=== PATIENT | female | born 1945 | race Caucasian/White ===

== ENCOUNTER 2022-09-25 10:20 | Outpatient (OUT) | payer MEDICARE, SELFPAY ==
--- NOTE | 2022-09-25 10:25 | VEIN_ITS ---
The [address] [address] Patient Name: PIA HILARIO MRN: [id number] date: 1945 Sex: F Assigned Patient Location: Current Patient Location: Accession/Order Number: [id number] Exam Date: 09/25/2022 10:55 Report Date: 09/25/2022 14:53 At the request of: MEENA ADHIKARI Procedure: VC INJ Foam Sclerosant WUS TALLOW REFINER PROCEDURE: VC INJ Foam Sclerosant WUS TALLOW REFINER COMPARISON: None. HISTORY: Painful Varicose Veins I83.813 Pre-operative Diagnosis: CEAP class C2 venous insufficiency with pain, tenderness, edema and incompetent branch saphenous vein, chronic venous insufficiency right leg secondary to venous incompetence Post-operative Diagnosis: CEAP class C2 venous insufficiency with pain, tenderness, edema and incompetent branch saphenous vein, chronic venous insufficiency ] leg secondary to venous incompetence Procedure Performed: 1. Ultrasound-guided microfoam chemical ablation with Varithenaregistered 2. Intraoperative ultrasound guidance Physician: Adan Barth M.D. Indications for Procedure: 77 year old female. Symptoms including bulging of the veins, leg cramping and pain, edema for many years despite conservative medical therapy including medical compression stockings, exercise and analgesics. Prior procedures include . 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 Duplex scan showed reflux and enlarged diameters up to 5 mm. The patient underwent informed consent including management options where the complications of infection, bleeding, pain, and skin injury were discussed. Particular attention was spent discussing thrombus extension and deep vein thrombosis as well as the possibility of pulmonary embolus and treatment with oral or injectable blood thinners. Procedure: A procedure timeout was performed to confirm correct patient, correct extremity, correct procedure, and correct room set-up including presence of all applicable supplies, devices, and drugs. A duplex ultrasound, performed by myself confirmed the location and incompetence of brain saphenous or calyces and there course marked on the skin. The extent of treatment of the vein and the associated varicosities was determined through ultrasound mapping. The limb was prepped. The skin was punctured with a butterfly needle and advanced under ultrasound guidance. The target limb was positioned at 45 degrees of elevation in relation to the torso. The Varithenaregistered canister was activated and the canister was primed and purged as required in the instructions for use. A 5 mL aliquot of Varithenaregistered was drawn into a sterile syringe. Varithenaregistered was slowly administered at 0.5-1.0 cc/second with close observation by ultrasound. Total volume utilized was 15 mL (8 mL within a 5 mm incompetent varicosity of the mid medial right lower leg; 7 mL within a 5 mm incompetent varicosity medial to the right knee). During administration of Varithenaregistered, the patient was asked to dorsiflex the ankle to limit flow of Varithenaregistered into perforating veins. Once appropriate spasm had been confirmed in the treated veins, the vascular catheter was removed from the leg and light pressure was applied over the puncture site for hemostasis The common femoral and deep superficial veins were then evaluated for flow and compressibility prior to dressing placement. The lower extremity was kept elevated at 45 degrees above the horizontal and cording material was applied over the saphenous segments and tributaries to allow for eccentric compression over the target vessels including the targeted saphenous vein(s). A multilayer dressing was applied consisting of foam pads, coban and thigh-high 20-30 mm Hg compression elastic support hose were placed on the patient. The leg was lowered only after compression had been applied and the patient was immediately ambulatory. The patient ambulated 10 minutes under supervision and was without apparent concerns at time of release Post-care instructions include advising patient to keep post-treatment bandages in place and dry for 48 hours, avoid extended periods of inactivity, avoid heavy exercise for one week, wear compression stockings on the treated leg continuously for two weeks, to walk daily for 10 minutes over the next month. The patient was instructed to take an anti-inflammatory medicine as needed and to follow up for color duplex scan of the treated superficial varices, the adjacent deep veins, and additional treatment within 7 days. PERSONNEL: Zain Dc RN Electronically authenticated by: ADAN BARTH Date: 09/25/2022 14:53
== END 2022-09-25 10:21 | disposition home or self-care (01) ==
LOC: VC 10:20
PROVIDERS: PCP Radiology Diagnostic Radiology; Visit Provider Radiology Diagnostic Radiology
DX: I83.813 Varicose veins of bilateral lower extremities with pain (principal)
CPT/HCPCS: 36466

== ENCOUNTER 2022-09-29 10:25 | Outpatient (OUT) | payer MEDICARE, SELFPAY ==
--- NOTE | 2022-09-29 10:27 | VEIN_ITS ---
Patient: PIA HILARIO Exam Date: 09/29/2022 : 1945 Gender:F Ordering : DR MEENA ADHIKARI M.D. Admission #: [id number] Family : Order #: [id number] CLICK HERE TO VIEW EXAM RADIOLOGY REPORT PROCEDURE: VC EXT VENOUS RT LMTD COMPARISON: None. INDICATIONS: Phlebitis of superficial veins of lt lower extremity I80.02 TECHNIQUE: Lower extremity atwood scale and Duplex Doppler evaluation of the deep venous system from the inguinal ligament through the calf veins. FINDINGS: REGION: Right lower extremity. THROMBI: Negative for DVT. Varithena induced thrombus visualized at mid/med calf and medial knee. COMPRESSIBILITY: Non-compressible segments. FLOW: Areas of no flow. OTHER: Patent varicose vein distal calf GSV 3.3mm with 0s reflux. Patent varicose vein mid/med calf 1.6mm with 0s reflux. CONCLUSION: 1. Successful post ablation occlusion of treated right leg incompetent branch saphenous varicosities. Dictated by: Adan Barth M.D. on 09/29/2022 at 12:19 Approved by: Adan Barth M.D. on 09/29/2022 at 12:20
--- NOTE | 2022-09-29 10:27 | VEIN_ITS ---
Patient: PIA HILARIO Exam Date: 09/29/2022 : 1945 Gender:F Ordering : DR MEENA ADHIKARI M.D. Admission #: [id number] Family : Order #: [id number] CLICK HERE TO VIEW EXAM RADIOLOGY REPORT PROCEDURE: VC FACILITY EST LMTD VEIN CENTER - OFFICE VISIT FOLLOW UP COMPARISON: None. PROGRESS NOTES: The patient reports that improvement in bilateral leg symptoms. There has been interval reduction in varicosities. The patient has followed our recommendations to walk 20-30 minutes once or twice per day since the procedure. Physical exam demonstrates decrease in superficial varicosities of the right leg. Persistent superficial varicosities are identified along the left leg. Review of the ultrasound performed the same day demonstrates occlusive thrombus extending throughout the treated vein, see separate report, consistent with a successful ablation. No thrombus extending into or beyond the saphenofemoral junction. The patient expressed a desire to proceed with treatment of remaining incompetent varicosities. The patient was informed that treatment was a process and would require several procedures/sessions. IMPRESSION: 1. Successful ablation of the treated incompetent branch saphenous varicosities of the right leg, with no more remaining. 2. Persistent dilated incompetent veins and lower extremity symptoms PLAN: Microfoam chemical ablation of left leg incompetent branch saphenous varicosities. Nurse notes, history and physical were reviewed and confirmed, see attached forms. The nurse was present throughout the physical exam and consultation Dictated by: Adan Barth M.D. on 09/29/2022 at 12:20 Approved by: Adan Barth M.D. on 09/29/2022 at 12:23
== END 2022-09-29 10:26 ==
LOC: VC 10:26
PROVIDERS: PCP Radiology Diagnostic Radiology; Visit Provider Radiology Diagnostic Radiology
DX: I80.01 Phlebitis and thrombophlebitis of superficial vessels of right lower extremity (principal)
CPT/HCPCS: 93971; G0463

== ENCOUNTER 2022-10-09 10:26 | Outpatient (OUT) | payer MEDICARE, SELFPAY ==
--- NOTE | 2022-10-09 | VEIN_ITS ---
[address] [address] Patient Name: PIA HILARIO MRN: [id number] date: 1945 Sex: F Assigned Patient Location: Current Patient Location: Accession/Order Number: [id number] Exam Date: 10/09/2022 10:30 Report Date: 10/09/2022 11:42 At the request of: CONRAD HAMILTON Procedure: VC INJ Foam Sclerosant WUS INSURANCE COUNSELOR PROCEDURE: VC INJ Foam Sclerosant WUS INSURANCE COUNSELOR COMPARISON: None. HISTORY: Pain due to varicose veins of bilateral legs I83.813 Pre-operative Diagnosis: CEAP class C2 venous insufficiency with pain, tenderness, edema and incompetent saphenous vein(s), chronic venous insufficiency left leg secondary to venous incompetence Post-operative Diagnosis: CEAP class C2 venous insufficiency with pain, tenderness, edema and incompetent saphenous vein(s), chronic venous insufficiency left leg secondary to venous incompetence Procedure Performed: 1. Ultrasound-guided microfoam chemical ablation with Varithenaregistered 2. Intraoperative ultrasound guidance Physician: Conrad Hamilton M.D. Anesthesia: None Indications for Procedure: 77 year old female. Symptoms including leg pain and cramping for many years despite conservative medical therapy including medical compression stockings, exercise and analgesics. Prior procedures include endovenous laser ablation. Multiple incompetent varicosities of the left leg. Duplex scan showed reflux and enlarged diameters up to 6 mm. The patient underwent informed consent including management options where the complications of infection, bleeding, pain, and skin injury were discussed. Particular attention was spent discussing thrombus extension and deep vein thrombosis as well as the possibility of pulmonary embolus and treatment with oral or injectable blood thinners. Procedure: The patient walked to the procedure room. All applicable staff donned appropriate apparel. A procedure timeout was performed to confirm correct patient, correct extremity, correct procedure, and correct room set-up including presence of all applicable supplies, devices, and drugs. A duplex ultrasound, performed by myself confirmed the location and incompetence of branch saphenous varicosities and their course was marked on the skin together with the dilated tributaries. The extent of treatment of the vein and the associated varicosities was determined through ultrasound mapping. The skin was prepped and then punctured with a butterfly needle and advanced under ultrasound guidance. The Varithenaregistered canister was activated and the canister was primed and purged as required in the instructions for use. Varithenaregistered was drawn into a sterile syringe. The following injections were made: 6 cc, left anterior distal lower leg, 5 mm vein 5 cc, left anterior distal thigh, 6 mm Varithenaregistered was slowly administered at 0.5-1.0 cc/second with close observation by ultrasound of its course in the vessels. Total volume utilized was: 11 cc. Following administration of Varithenaregistered the leg was elevated and the patient was asked to repeatedly dorsiflex the ankle to limit flow of Varithenaregistered into perforating veins. Once appropriate spasm had been confirmed in the treated veins, the vascular catheter was removed from the leg and light pressure was applied over the puncture site for hemostasis. The common femoral and deep superficial veins were then evaluated for flow and compressibility prior to dressing placement. The lower extremity was kept elevated at 45 degrees above the horizontal and cording material was applied over the saphenous segments and tributaries to allow for eccentric compression over the target vessels including the targeted saphenous vein(s). A multilayer dressing was applied consisting of foam pads, coban and thigh-high 20-30 mm Hg compression elastic support hose were placed on the patient. The leg was lowered only after compression had been applied and the patient was immediately ambulatory. The patient ambulated 10 minutes under supervision and was without apparent concerns at time of release. Post-care instructions include advising patient to keep post-treatment bandages in place and dry for 48 hours, avoid extended periods of inactivity, avoid heavy exercise for one week, wear compression stockings on the treated leg continuously for two weeks, to walk daily for 10 minutes over the next month. The patient was instructed to take an anti-inflammatory medicine as needed and to follow up for color duplex scan of the Saphenous veins, the treated branch saphenous varicosities, the adjacent deep veins, and additional treatment within 7 days. PERSONNEL: Zain Dc Electronically authenticated by: CONRAD HAMILTON Date: 10/09/2022 11:42
== END 2022-10-09 10:27 ==
PROVIDERS: PCP Radiology Diagnostic Radiology; Visit Provider Radiology Diagnostic Radiology
DX: I83.813 Varicose veins of bilateral lower extremities with pain (principal)
CPT/HCPCS: 36466

== ENCOUNTER 2022-10-15 08:25 | Outpatient (OUT) | payer MEDICARE, SELFPAY ==
--- NOTE | 2022-10-15 08:27 | VEIN_ITS ---
Patient: PIA HILARIO Exam Date: 10/15/2022 : 1945 Gender:F Ordering : DR MEENA ADHIKARI M.D. Admission #: [id number] Family : Order #: [id number] CLICK HERE TO VIEW EXAM RADIOLOGY REPORT PROCEDURE: FACILITY EST LMTD VEIN CENTER - OFFICE VISIT FOLLOW UP COMPARISON: FACILITY EST LMTD, 09/29/2022. PROGRESS NOTES: The patient reports that improvement in leg symptoms. There has been interval reduction in varicosities. The patient has followed our recommendations to walk 20-30 minutes once or twice per day since the procedure. Physical exam demonstrates decrease in varicosities of the bilateral legs. Persistent spider veins are identified along the legs bilaterally. Review of the ultrasound performed the same day demonstrates occlusive thrombus extending throughout the treated vein, see separate report, consistent with a successful ablation. No thrombus extending into or beyond the saphenofemoral junction. The patient expressed a desire to proceed with treatment of right anterior accessory saphenous vein and right small saphenous vein (reportedly patient previously decided not to have these treated). The patient was informed that treatment was a process and would require 2 more EVLT treatments (for the right anterior accessory and right small saphenous veins) along with approximately 2 sessions of sclerotherapy. IMPRESSION: 1. Successful ablation of the treated branch saphenous varicosities. 2. Persistent incompetent right anterior accessory saphenous vein and right small saphenous vein. PLAN: 1. Endovenous laser ablation of right anterior accessory saphenous vein and right small saphenous vein. 2. Bilateral sclerotherapy. Nurse notes, history and physical were reviewed and confirmed, see attached forms. The nurse was present throughout the physical exam and consultation Dictated by: Adan Barth M.D. on 10/15/2022 at 11:16 Approved by: Adan Barth M.D. on 10/15/2022 at 11:23
--- NOTE | 2022-10-15 08:27 | VEIN_ITS ---
Patient: PIA HILARIO Exam Date: 10/15/2022 : 1945 Gender:F Ordering : DR MEENA ADHIKARI M.D. Admission #: [id number] Family : Order #: [id number] CLICK HERE TO VIEW EXAM RADIOLOGY REPORT PROCEDURE: VC EXT VENOUS LT LIMITED COMPARISON: None. INDICATIONS: Phlebitis of superficial veins of lt lower extremity I80.02 TECHNIQUE: Lower extremity atwood scale and Duplex Doppler evaluation of the deep venous system from the inguinal ligament through the calf veins. FINDINGS: REGION: Left lower extremity. THROMBI: Negative for DVT. Varithena induced thrombus visualized at mid/anterior calf, mid/anterior thigh, and distal/med calf. COMPRESSIBILITY: Non-compressible segments. FLOW: Areas of no flow. OTHER: No patent varicose veins remain. CONCLUSION: 1. Successful post ablation occlusion of treated branch saphenous varicosities. Dictated by: Adan Barth M.D. on 10/15/2022 at 11:15 Approved by: Adan Barth M.D. on 10/15/2022 at 11:16
== END 2022-10-15 08:26 | disposition home or self-care (01) ==
LOC: VC 08:26
PROVIDERS: PCP Radiology Diagnostic Radiology; Visit Provider Radiology Diagnostic Radiology
DX: I80.02 Phlebitis and thrombophlebitis of superficial vessels of left lower extremity (principal)
CPT/HCPCS: 93971; G0463

== ENCOUNTER 2022-10-30 08:58 | Outpatient (OUT) | payer MEDICARE, SELFPAY ==
--- NOTE | 2022-10-30 09:00 | VEIN_ITS ---
[address] [address] Patient Name: PIA HILARIO MRN: [id number] date: 1945 Sex: F Assigned Patient Location: Current Patient Location: Accession/Order Number: [id number] Exam Date: 10/30/2022 09:44 Report Date: 10/30/2022 10:12 At the request of: MEENA ADHIKARI Procedure: VC Endovenous Ablation 1VeinRT EXAMINATION: VC Endovenous Ablation 1Vein Right SSV HISTORY: I83.813 pain due to varicose vein of bilateral legs COMPARISON: No relevant comparison available. TECHNIQUE: The risks and benefits of the procedure had been previously discussed, and were rediscussed at length. Informed written consent was obtained. Azeb Francis and Aaliyah assisted. Time out procedure was performed. The right lower extremity was prepared and draped in the usual sterile fashion. Duplex ultrasound probe was draped in a sterile cover, sterile transmission gel was used. Venous mapping was performed with the areas of dilation and large tributaries marked. The total length was 21 cm from the entry distal calf to where the vein begins to dive deep into the muscle fascia. The diameter of the small saphenous vein ranged from 4-6 mm. A 30 gauge needle and 1% buffered lidocaine was used to anesthetize the entry site. A 4 mm incision was made with a scalpel and the saphenous vein was entered percutaneously under direct ultrasound guidance with a micropuncture set, a single stick was successful in gaining access. A micro-guide wire was inserted and the needle removed. A micro-set including a dilator was inserted over the microwire and the needle and dilator were removed. A 0.018 guide wire was inserted through the micro-set and threaded through the saphenous vein . The dilator was removed and an introducer sheath was inserted over the wire. The dilator and wire were removed and the 600 micron fiber was introduced and placed and positioned so that it extended beyond the sheath. Final position of the fiber was determined by ultrasound guidance and duplex imaging. Tumescent anesthetic was delivered by ultrasound guidance. 100 cc of fluid was delivered along the entire course of the saphenous vein. The solution consisted of 1000 cc of normal saline with 40 mL of 1% lidocaine and 20 mL of sodium bicarbonate. A final positioning check was made. The energy source was turned on by means of the foot pedal and the fiber and sheath were withdrawn. The total number of Joules delivered was 988. The laser was active for 120 seconds under continuous pulse, average laser use of 8 J. Laser start time 09:52 am 10/30/22. Laser stop time 09:53 10/30/22 . A duplex ultrasound revealed compressibility and flow at the saphenofemoral junction immediately after the procedure. Hemostasis at the access site was achieved. The skin incision of the saphenous vein was closed with a 4 x 4. A compression stocking was applied. Postop instructions were given. A follow up appointment was recommended and scheduled. The patient tolerated the procedure well and was discharged in good condition . IMPRESSION: Technically successful endovenous laser ablation of the right small saphenous vein Electronically authenticated by: MEENA ADHIKARI Date: 10/30/2022 10:12
[2022-10-30] MEDS: 0.9 % SODIUM CHLORIDE 500 ML, LIDOCAINE HCL 20 ML, SODIUM BICARBONATE 10 MEQ INJ (10:19)
[2022-10-30] MEDS: LIDOCAINE HCL 10 ML, SODIUM BICARBONATE 1 MEQ INJ (10:20)
== END 2022-10-30 08:59 | disposition home or self-care (01) ==
LOC: VC 08:58
PROVIDERS: PCP Radiology Diagnostic Radiology; Visit Provider Radiology Diagnostic Radiology
DX: I83.813 Varicose veins of bilateral lower extremities with pain (principal)
CPT/HCPCS: 36478

== ENCOUNTER 2022-11-04 14:23 | Outpatient (OUT) | payer MEDICARE, SELFPAY ==
--- NOTE | 2022-11-04 | VEIN_ITS ---
Patient: IPA HIALRIO Exam Date: 11/04/2022 : 1945 Gender:F Ordering : DR MEENA ADHIKARI M.D. Admission #: [id number] Family : Order #: [id number] CLICK HERE TO VIEW EXAM RADIOLOGY REPORT PROCEDURE: [facility] EST L[facility] C[facility] - OFFICE VISIT FOLLOW UP [facility] PROGRESS NOTES: The patient reports improvement in right leg symptoms. There has been interval reduction in varicosities. The patient has followed our recommendations to walk 20-30 minutes once or twice per day since the procedure. Physical exam demonstrates decrease in varicosities of the right leg. Persistent spider veins are identified along the legs bilaterally. Review of the ultrasound performed the same day demonstrates occlusive thrombus extending throughout the treated vein, see separate report, consistent with a successful ablation. No thrombus extending into or beyond the saphenofemoral junction. The patient expressed a desire to proceed with treatment of remaining spider veins. The patient was informed that treatment was a process and would require approximately 1-2 procedures/sessions. VEIN/[facility] EST LMTD IMPRESSION: 1. Successful ablation of the right small saphenous vein 2. Persistent spider veins bilaterally. PLAN: 1. Sclerotherapy of bilateral lower extremities. Nurse notes, history and physical were reviewed and confirmed, see attached forms. The nurse was present throughout the physical exam and consultation Dictated by: Adan Barth M.D. on 11/05/2022 at 08:12 Approved by: Adan Barth M.D. on 11/05/2022 at 08:22
--- NOTE | 2022-11-04 | VEIN_ITS ---
Patient: PIA HILARIO Exam Date: 11/04/2022 : 1945 Gender:F Ordering : DR MEENA ADHIKARI M.D. Admission #: [id number] Family : Order #: [id number] CLICK HERE TO VIEW EXAM RADIOLOGY REPORT PROCEDURE: VC EXT VENOUS RT LMTD COMPARISON: VC EXT VENOUS RT LMTD, 09/29/2022. INDICATIONS: Phlebitis of superficial veins of rt lower extremity I80.01 TECHNIQUE: Lower extremity atwood scale and Duplex Doppler evaluation of the deep venous system from the inguinal ligament through the calf veins. FINDINGS: REGION: Right lower extremity. THROMBI: Positive for DVT. Heat induced thrombus in right SSV 3.1 cm from SPJ and extends to distal calf. Thrombus in gastroc veins approximately 5-6 cm from popliteal vein. COMPRESSIBILITY: Non-compressible segments. FLOW: Areas of no flow. OTHER: No significant varicosities remain. CONCLUSION: 1. Successful post ablation occlusion of right small saphenous vein. Dictated by: Adan Barth M.D. on 11/05/2022 at 08:10 Approved by: Adan Barth M.D. on 11/05/2022 at 08:12
== END 2022-11-04 14:24 | disposition home or self-care (01) ==
LOC: VC 14:23
PROVIDERS: PCP Radiology Diagnostic Radiology; Visit Provider Radiology Diagnostic Radiology
DX: I80.10 Phlebitis and thrombophlebitis of unspecified femoral vein (principal)
CPT/HCPCS: 93971; G0463

== ENCOUNTER 2022-11-18 14:29 | Outpatient (OUT) | payer MEDICARE, SELFPAY ==
--- NOTE | 2022-11-18 | VEIN_ITS ---
[address] [address] Patient Name: PIA HILARIO MRN: [id number] date: 1945 Sex: F Assigned Patient Location: VC Current Patient Location: Accession/Order Number: [id number] Exam Date: 11/18/2022 14:30 Report Date: 11/19/2022 07:30 At the request of: MEENA ADHIKARI Procedure: VC INJ Sclerosing SOLMULT Vein EXAMINATION: VC INJ Sclerosing SOLMULT Vein HISTORY: Pain due to varicose veins of bilateral legs I83.813 COMPARISON: No relevant comparison available. TECHNIQUE: The risks and benefits of the procedure were explained at length to the patient and informed written consent was obtained. Zain Dc was present and assisted. The procedure was performed under sterile technique. The patient's leg was wrapped with Coban and postprocedural verbal and written instructions provided. SCLEROSANT: 4 cc, 0.5% polidocanol VEIN(S) INJECTED: 28 veins in the left leg VISUALIZATION: Ultrasound was not used to visualize the sclerosant ANESTHESIA: Supercooled air COMPLICATIONS: None VEIN/VC INJ Sclerosing SOLMULT Vein IMPRESSION: Technically successful sclerotherapy as described Electronically authenticated by: MEENA ADHIKARI Date: 11/19/2022 07:30
== END 2022-11-18 14:30 | disposition home or self-care (01) ==
LOC: VC 14:29
PROVIDERS: PCP Radiology Diagnostic Radiology; Visit Provider Radiology Diagnostic Radiology
DX: I83.813 Varicose veins of bilateral lower extremities with pain (principal)
CPT/HCPCS: 36471